=== PATIENT | female | born 1970 | race Caucasian/White ===

== ENCOUNTER 2016-06-29 22:23 | Emergency (ER) | payer MEDICARE, MEDICAID ==
[2016-06-29 22:30] VITALS: BP 171/100
--- NOTE | 2016-06-29 22:45 | ERNOTE ---
Integumentary HPI - Narrative Date of Service: 06/29/16 - General Presenting Symptoms: abscess Source: patient - Immun/Allergies/Home Medications Immunizations: IMMUNIZATION HX Immunizations Up to Date Yes History of Influenza Vaccine No Hx Pneumococcal Vaccination No Allergies/Adverse Reactions: Allergies Allergy/AdvReac Type Severity Reaction Status Date / Time loratadine [From Claritin-D] AdvReac Hives Verified 06/29/16 22:30 pseudoephedrine sulfate AdvReac Hives Verified 06/29/16 22:30 [From Claritin-D] - History of Present Illness Narrative: 46-year-old female developed an abscess in her right flank area. Apparently it came to a head and opened and drained but she is concerned that after a week and it is still draining. It is minimally painful. She has already been to another ER earlier today and told to make an appointment with her primary care provider and that there was nothing emergent needed to be done and I would agree with that assessment Review of Systems - Review of Systems Constitutional: Present: no symptoms reported EYE: Present: no symptoms reported ENT: Present: no symptoms reported Respiratory: Present: no symptoms reported Cardiology: Present: no symptoms reported Gastrointestinal/Abdominal: Present: no symptoms reported Genitourinary: Present: no symptoms reported Musculoskeletal: Present: no symptoms reported Skin: Present: See HPI Neurological: Present: no symptoms reported Endocrine: Present: no symptoms reported Hematologic/Lymphatic: Present: no symptoms reported Psych: Present: no symptoms reported - Patient's Past Medical History Patient History - Medical: No pertinent hx Patient History - Cancer: No Hx of Cancer Patient History - Surgical Procedures: , Tubal Ligation, Other LMP (females 10-50): now - Social History Living Situations: home Smoking Status: Current every day smoker Physical Exam - Physical Exam General Appearance: Present: wd/wn, alert, no apparent distress Eye Exam: Normal inspection: bilateral, PERRL: bilateral Ears, Nose, Throat: Present: normal ENT inspection, hearing grossly normal, normal pharynx Neck: Present: normal inspection, nontender Respiratory: Present: no respiratory distress, normal breath sounds, no accessory muscle use, chest nontender, lungs clear Cardiovascular/Chest: Present: regular rate, rhythm, no murmur, normal peripheral pulses Gastrointestinal/Abdominal: Present: normal bowel sounds, nontender, nondistended, soft, no organomegaly Rectal Exam: Present: deferred Back Exam: Present: normal inspection, normal range of motion, no CVA tenderness , no vertebral tenderness Extremity Exam: Present: normal inspection, non-tender, no edema, normal range of motion Neurological Exam: Present: alert, oriented, normal mood/affect, no motor/ sensory deficits Skin Exam: Present: normal color, warm/dry, other - healing abscess with minimal erythema and no drainage at this time Lymphatic Exam: Present: no adenopathy ED Progress - Vital Signs Vital Signs: Vital Signs 06/29/16 22:27 Temperature 36.8 C Pulse Rate 90 Respiratory 16 Rate Blood Pressure 171/100 O2 Sat by Pulse 99 Oximetry - Progress/Reassessment Chief Complaint: Abscess Departure Clinical Impression: Skin abscess Qualifiers: Site of cutaneous abscess: trunk Site of cutaneous abscess of trunk: unspecified site Qualified Code(s): L02.219 - Cutaneous abscess of trunk, unspecified - Departure Disposition: Home self-care Condition: Good Instructions: Abscess, [id number] Additional Instructions: Continue to apply warm compresses to the area and antibiotic ointment and bandage and follow up with your primary care provider as needed
== END 2016-06-29 22:48 | disposition home or self-care (01) ==
LOC: ER 22:23
DX: L02.219 Cutaneous abscess of trunk, unspecified (principal); F17.210 Nicotine dependence, cigarettes, uncomplicated